=== PATIENT | female | born 1970 | race Caucasian/White ===

== ENCOUNTER → 2017-02-04 | Outpatient (CLI) | payer BC ==
[~2017-02-04] MED LIST: ADVIN25/60 INH; FEXO5TAB2 PO; IBUP-1050 PO; LORA-741 PO
--- NOTE | 2017-02-07 14:00 | MAMMOGRAPHY REPORT ---
BILATERAL DIGITAL SCREENING MAMMOGRAM TOMOSYNTHESIS WITH CAD: 02/04/2017 CLINICAL HISTORY: Patient presents for routine screening. S/P bilateral augmentation. TECHNIQUE: Breast tomosynthesis in addition to standard 2D mammography was performed. Current study was also evaluated with a Computer Aided Detection (CAD) system. Tomosynthesis images were obtaine d of the implant displaced views only. COMPARISON: Comparison is made to exams dated: 02/02/2016 mammogram, 12/26/2014 mammogram, 08/06/2013 ma mmogram, and 01/07/2012 mammogram - [facility]. BREAST COMPOSITION: The tissue of both breasts is heterogeneously dense, which may obscure small ma sses. FINDINGS: No suspicious masses, calcifications, or areas of architectural distortion are noted in e ither breast. There has been no significant interval change compared to prior exams. Bilateral subp ectoral saline implants are stable in appearance. IMPRESSION: ACR BI-RADS CATEGORY 2: BENIGN There is no mammographic evidence of malignancy. A 1 year screening mammogram is recommended. The p atient will receive written notification of the results. Approximately 10% of breast cancers are not detected with mammography. A negative mammographic repor t should not delay biopsy if a clinically suggestive mass is present. Nina Gagnon M.D. ah/:02/04/2017 16:01:47 Emt: Divya Hernandez, [facility] letter sent: Normal 1/2 BI-RADS Code: ACR BI-RADS Category 2: Benign
== END | disposition home or self-care (01) ==
LOC: C.MAMM 15:16
PROVIDERS: ATTEND Obstetrics & Gynecology
DX: Z12.31 Encounter for screening mammogram for malignant neoplasm of breast (principal)

== ENCOUNTER → 2017-06-10 | Outpatient (CLI) | payer BC | END | disposition home or self-care (01) | LOC: C.PATHSPEC 15:40 | PROVIDERS: ATTEND Obstetrics & Gynecology | DX: N93.9 Abnormal uterine and vaginal bleeding, unspecified (principal) ==

== ENCOUNTER → 2017-06-30 | Day surgery (SDC) | payer BC ==
[2017-06-01 11:35] VITALS: Ht 166.4 cm; Wt 59.1 kg
[~2017-06-30] VITALS: Ht 166.4 cm; Wt 59.1 kg
[~2017-06-30] MED LIST changes: +ATROPINE SULFATE 0.1 MG/ML 5ML SYR IV PRN; +DEXAMETHASONE SOD INJ 4 MG/ML VIAL ONE; +EpHEDrine SULFATE INJ 50 MG/ML AMP IV PRN; +FENTANYL CITRATE INJ 50 MCG/1 ML 2 ML VIAL ONE; +HYDROmorphone INJ 1 MG/ML SYR IV PRN; +IBUPROFEN 600 MG TAB PO PRN; +KETOROLAC TROMETHAMINE 30 MG/ML VIAL IV. PRN; +KETOROLAC TROMETHAMINE 30 MG/ML VIAL ONE; +LACTATED RINGER'S 1000ML 1,000 ML IV SCH; +LIDOCAINE HCL 2% 2 ML VIAL (20MG/ML) ONE; +MIDAZOLAM HCL 1 MG/ML 2ML VIAL ONE; +ONDANSETRON INJ 2 MG/ML 2 ML VIAL IV PRN; +ONDANSETRON INJ 2 MG/ML 2 ML VIAL ONE; +OXYCODONE/ACETAMINOPHEN 5-325 TAB PO PRN; +PROMETHAZINE HCL INJ 12.5 MG in SODIUM CHLORIDE 0.9% 50ML 50 ML IV PRN; +PROPOFOL IV EMULSION 10 MG/ML 20 ML VIAL IV ONE; +SODIUM CHLORIDE 0.9% 1000ML 1,000 ML IV SCH
--- NOTE | 2017-06-30 10:00 | History & Physical Bridge - [place] ---
H&P Re-Evaluation Bridge Note: I have examined the patient, reviewed the History & Physical and in the interval since the performance of the History & Physical I have noted the following changes of clinical significance: No changes noted
--- NOTE | 2017-06-30 10:40 | Discharge Instructions ---
Discharge Instructions Date of Service Jun 30, 2017. Admission Reason for Admission: Abnormal Uterine Bleeding Discharge Discharge Diagnosis / Problem: after surgery Discharge Goals Goal(s): Routine recovery after surgery Activity Recommendations Activity Limitations: as noted below . Instructions / Follow-Up Instructions / Follow-Up ACTIVITY RECOMMENDATIONS: * Avoid tampons, douching, hot tubs, pools, and intercourse until bleeding has stopped. * May shower as usual. * No strenuous activity for 24-48 hours. After 24-48 hours, you may do anything you feel like doing (driving and sports are okay). SPECIAL CARE INSTRUCTIONS: Special Diet: * Mild nausea may occur in the immediate post-operative period. * Take clear liquids such as tea, cola or bouillon until all nausea has subsided; you may then resume your normal diet. Special Care: * Light bleeding and vaginal spotting can last from a few days to 3-4 weeks. Call your doctor if bleeding becomes heavier than the heaviest part of your period. * Check your temperature twice a day for one week. If it goes above 100.4 degrees Fahrenheit (38.0 Celsius), notify your doctor. * Call your doctor's office for an appointment for 2-4 weeks after your surgery. FOLLOW-UP VISIT: Call your doctor's office for an appointment for 2-4 weeks after your surgery. Current Hospital Diet Patient's current hospital diet: Discharge Diet Recommended Diet: Regular Diet Procedures Procedures Performed: Endometrial Ablation with Novasure, Dilatation And Curettage, Hysteroscopy Pending Studies Studies pending at discharge: yes List of pending studies: pathology report Medical Emergencies . Who to Call and When: Medical Emergencies: If at any time you feel your situation is an emergency, please call 911 immediately. . Non-Emergent Contact Non-Emergency issues call your: [employer] . . "Provider Documentation" section prepared by Mariam Garcia. . VTE Core Measure Inpt VTE Proph given/why not?: Treatment not indicated
--- NOTE | 2017-06-30 10:43 | [facility] Post Operative Brief Note ---
Immediate Operative Summary Operative Date Jun 30, 2017. Pre-Operative Diagnosis Abnormal Uterine Bleeding, Abnormal ultrasound findings. Post-Operative Diagnosis Same, likely SM fibroid, small Procedure(s) Performed Endometrial Ablation with Novasure, Dilatation And Curettage, Hysteroscopy, Removal of endometrial lesion suspected fibroid Surgeon Dr Garcia Bookmobile Driver Surgeon(s) None Estimated Blood Loss 0ml Findings uterus sounds to 9cm. Cx length 4cm. Cavity length 5cm. Cavity width 3.7cm. Ablation in 91 sec. Saline deficit 15cc. hysteroscopic findings with normal uterine fundus, nl ostia bilaterally, small indent on left wall at TRAVIS thought to be more likely fibroid. post ablation lining c/w ablation, no evidence of perforation. Fluids (cc crystalloids) 400 Specimens A: Endometrial Currettings B: Uterine Fibroid Drains none Anesthesia general Complication(s) None Disposition Recovery Room / PACU
[2017-06-30] MEDS: FENTANYL CITRATE INJ 50 MCG/1 ML 2 ML VIAL IV PRN ×4 (10:49→11:17)
--- NOTE | 2017-06-30 11:06 | OPERATIVE REPORT ---
DATE OF OPERATION: 06/30/2017 PREOPERATIVE DIAGNOSES: 1. Abnormal uterine bleeding. 2. Abnormal ultrasound findings. POSTOPERATIVE DIAGNOSES: 1. Same. 2. Suspected small fibroid of the endometrium. PROCEDURES: 1. Dilatation and curettage. 2. Hysteroscopy. 3. Removal of endometrial lesion/suspected submucosal fibroid 4. Endometrial ablation with NovaSure device. SURGEON: Dr. Mariam Garcia. GRAFFITI CLEANER: None. IV FLUIDS: 400 mL. ESTIMATED BLOOD LOSS: 0 mL. ANESTHESIA: General. FINDINGS: Uterus sounds to 9 cm. Cervical length 4 cm. Cavity length 5 cm. Cavity width 3.[address] in 91 seconds. Saline hysteroscopic fluid deficit 15 mL. Hysteroscopic findings at the start of the procedure with normal uterine fundus. Normal ostia bilaterally and small indent on the left wall at the lower uterine segment thought to be more likely fibroid. Post-ablation lining consistent with ablation with no evidence of perforation. INDICATIONS: A 47-year-old who has completed her childbearing with partner having male vasectomy who desires management of her heavy vaginal bleeding using endometrial ablation. On ultrasound, there was evidence of possible endometrial polyp and therefore the decision was made to proceed directly to the operating room for planned removal of any lesion followed by endometrial ablation with the goal to help her menstrual bleeding. She did have a preprocedure labs as well as endometrial biopsy was negative. PROCEDURE: The patient was taken to the operating room and identified. After adequate general anesthesia was obtained, she was placed in the dorsal lithotomy position and prepped and draped in the usual sterile fashion. The bladder was drained for clear yellow urine. A weighted speculum and anterior retractor were placed to visualize the cervix which was grasped on its anterior lip with a single tooth tenaculum. The cervix was sequentially dilated using Vane dilators to 25. Hysteroscope primed with saline medium was gently placed through the cervical os into the uterine cavity with findings as noted above. Hysteroscope was then removed. The uterus was curettaged to a gritty consistency using history a serrated curette and this did remove tissue that appeared consistent with a fibroid. This was sent separately. The rest of the endometrial curettings were also sent. The cavity length had been determined and NovaSure endometrial ablation device was then readied. It was placed into the uterine cavity and the cavity width was determined. The device passed with cavity assessment. The ablation then took place as noted above. The device was then allowed to cool and was removed from the uterus. The hysteroscope was reintroduced with the findings as noted above. At this point the procedure was terminated. The tenaculum was removed from the cervix. There is no active bleeding. The weighted speculum was removed. The patient was returned to supine position. She was awoken from anesthesia and transferred to the recovery room in stable condition. All sponge, lap and needle counts were correct x2. I attest to the content of the Intraoperative Record and any orders documented therein. Any exceptions are noted below. MTDD
[2017-06-30 12:00] VITALS: O2SAT 100
[2017-06-30 12:22] VITALS: BP 107/65; PULSE 60
--- NOTE | 2017-06-30 12:22 | Anesthesia Progress Nt - [facility] ---
Anesthesia Post Op Note Date & Time Jun 30, 2017 at 12:18 Vital Signs Pain Intensity: 8 Vital Signs Past 12 Hours Date Time Temp Pulse Resp B/P (MAP) Pulse Ox O2 Delivery O2 Flow Rate FiO2 06/30/17 12:00 54 16 100 Room Air 06/30/17 11:35 54 16 116/78 (91) 100 Room Air 06/30/17 11:27 36.4 60 16 101/64 99 Room Air 06/30/17 11:22 108/52 06/30/17 11:21 57 12 100 06/30/17 11:21 58 12 06/30/17 11:16 60 20 118/63 100 06/30/17 11:16 59 20 06/30/17 11:12 104/54 06/30/17 11:11 59 16 06/30/17 11:11 59 16 100 06/30/17 11:07 119/52 06/30/17 11:06 57 16 100 06/30/17 11:06 57 16 06/30/17 11:02 94/74 06/30/17 11:01 67 14 06/30/17 11:01 67 14 100 06/30/17 11:00 56 18 100 06/30/17 11:00 56 18 06/30/17 11:00 56 18 100 06/30/17 11:00 56 18 06/30/17 10:56 106/69 06/30/17 10:56 106/69 06/30/17 10:55 64 15 06/30/17 10:55 64 15 100 06/30/17 10:55 64 15 100 06/30/17 10:55 64 15 06/30/17 10:53 110/62 06/30/17 10:53 110/62 06/30/17 10:50 65 14 06/30/17 10:50 65 14 06/30/17 10:50 66 14 100 06/30/17 10:50 66 14 100 06/30/17 10:47 109/60 06/30/17 10:47 109/60 06/30/17 10:45 65 13 100 06/30/17 10:45 64 13 06/30/17 10:45 64 13 06/30/17 10:45 65 13 100 06/30/17 10:41 115/77 06/30/17 10:41 115/77 06/30/17 10:40 65 13 100 06/30/17 10:40 65 13 06/30/17 10:40 65 13 100 06/30/17 10:40 65 13 06/30/17 10:37 132/82 06/30/17 10:37 132/82 06/30/17 10:35 36.5 61 14 132/62 100 Mask 6 06/30/17 09:09 36.8 68 16 114/79 (91) 100 Room Air Notes Mental Status: alert / awake / arousable, participated in evaluation Pt Amnestic to Procedure: Yes Nausea / Vomiting: adequately controlled Pain: adequately controlled Airway Patency, RR, SpO2: stable & adequate BP & HR: stable & adequate Hydration State: stable & adequate Anesthetic Complications: no major complications apparent
--- NOTE | 2017-07-25 11:53 | [facility] Operative Report ---
Operative Report Operative Date Jul 25, 2017. Pre-Operative Diagnosis Abnormal Uterine Bleeding, Abnormal ultrasound findings. Post-Operative Diagnosis Same, likely SM fibroid, small Procedure(s) Performed Endometrial Ablation with Novasure, Dilatation And Curettage, Hysteroscopy, Removal of endometrial lesion suspected fibroid Surgeon Dr Garcia Recreation Therapy Aide Surgeon(s) None Estimated Blood Loss 0ml Findings see other operative note Fluids 400 Specimens A: Endometrial Currettings B: Uterine Fibroid Drains none Anesthesia general Disposition Recovery Room / PACU I attest to the content of the Intraoperative Record and any orders documented therein. Any exceptions are noted below. ADDENDUM: pt has regular cycles with excessive bleeding. code N92.0 and she has excessive bleeding in premenopausal period N92.4
== END | disposition home or self-care (01) ==
LOC: X.SURG 08:42
PROVIDERS: ATTEND Obstetrics & Gynecology
DX: N93.9 Abnormal uterine and vaginal bleeding, unspecified (principal); R93.5 Abnormal findings on diagnostic imaging of other abdominal regions, including retroperitoneum; Z79.52 Long term (current) use of systemic steroids; Z82.49 Family history of ischemic heart disease and other diseases of the circulatory system; Z80.3 Family history of malignant neoplasm of breast

== ENCOUNTER → 2018-02-13 | Outpatient (CLI) | payer BC ==
[~2018-02-13] MED LIST changes: -ATROPINE SULFATE 0.1 MG/ML 5ML SYR IV PRN; -DEXAMETHASONE SOD INJ 4 MG/ML VIAL ONE; -EpHEDrine SULFATE INJ 50 MG/ML AMP IV PRN; -FENTANYL CITRATE INJ 50 MCG/1 ML 2 ML VIAL ONE; -HYDROmorphone INJ 1 MG/ML SYR IV PRN; -IBUPROFEN 600 MG TAB PO PRN; -KETOROLAC TROMETHAMINE 30 MG/ML VIAL IV. PRN; -KETOROLAC TROMETHAMINE 30 MG/ML VIAL ONE; -LACTATED RINGER'S 1000ML 1,000 ML IV SCH; -LIDOCAINE HCL 2% 2 ML VIAL (20MG/ML) ONE; -MIDAZOLAM HCL 1 MG/ML 2ML VIAL ONE; -ONDANSETRON INJ 2 MG/ML 2 ML VIAL IV PRN; -ONDANSETRON INJ 2 MG/ML 2 ML VIAL ONE; -OXYCODONE/ACETAMINOPHEN 5-325 TAB PO PRN; -PROMETHAZINE HCL INJ 12.5 MG in SODIUM CHLORIDE 0.9% 50ML 50 ML IV PRN; -PROPOFOL IV EMULSION 10 MG/ML 20 ML VIAL IV ONE; -SODIUM CHLORIDE 0.9% 1000ML 1,000 ML IV SCH
--- NOTE | 2018-02-13 13:58 | MAMMOGRAPHY REPORT ---
BILATERAL DIGITAL SCREENING MAMMOGRAM TOMOSYNTHESIS WITH CAD: 02/13/2018 CLINICAL HISTORY: Patient presents for routine screening. S/P bilateral augmentation. TECHNIQUE: Breast tomosynthesis in addition to standard 2D mammography was performed. Current study was also evaluated with a Computer Aided Detection (CAD) system. Tomosynthesis images were obtained of the implant displaced views only. COMPARISON: Comparison is made to exams dated: 02/02/2016 mammogram, 02/04/2017 mammogram, 12/26/2014 ma mmogram, 08/06/2013 mammogram, and 01/07/2012 mammogram - [facility]. BREAST COMPOSITION: The tissue of both breasts is heterogeneously dense, which may obscure small mas ses. FINDINGS: No suspicious masses, calcifications, or areas of architectural distortion are noted in ei ther breast. There has been no significant interval change compared to prior exams. Bilateral subpec nita saline implants are stable in appearance. IMPRESSION: ACR BI-RADS CATEGORY 2: BENIGN There is no mammographic evidence of malignancy. A 1 year screening mammogram is recommended. The pa tient will receive written notification of the results. Approximately 10% of breast cancers are not detected with mammography. A negative mammographic report should not delay biopsy if a clinically suggestive mass is present. Nina Gagnon M.D. /:02/13/2018 13:18:14 Client Operations Manager: Divya STEINER(Prasanna)(M), [facility] letter sent: Normal 1/2 BI-RADS Code: ACR BI-RADS Category 2: Benign
== END | disposition home or self-care (01) ==
LOC: C.MAMM 12:25
PROVIDERS: ATTEND Obstetrics & Gynecology
DX: Z12.31 Encounter for screening mammogram for malignant neoplasm of breast (principal)